=== PATIENT | male | born 1940 | race Caucasian/White ===

== ENCOUNTER 2018-02-01 12:52 | Outpatient (CLI) | payer MEDICARE ==
[~2018-02-01 12:52] MED LIST: ACET-812 PO; ASPRIN PO; CLON-285 PO; DULR RC; VITC500T PO; [UNRECOGNIZED DRUG - SUPPLY]; [UNRECOGNIZED DRUG - SUPPLY]
[2018-02-01 13:21] LABS: TOTAL HEMOGLOBIN 16.1 G/dl (14.0-18.0)
[2018-02-01] MEDS ORDERED: albuterol 2.5 MG/3 ML nebule NEB ONE (13:50)
== END 2018-02-01 23:59 | disposition home or self-care (01) ==
LOC: RT 12:52
PROVIDERS: ATTEND Internal Medicine Pulmonary Disease
DX: J44.9 Chronic obstructive pulmonary disease, unspecified (principal); Z87.891 Personal history of nicotine dependence
CPT/HCPCS: 85018; 94010; 94727

== ENCOUNTER 2018-03-15 12:45 | Outpatient (CLI) | payer MEDICARE ==
[~2018-03-15] VITALS: Ht 182.9 cm; Wt 79.4 kg
[2018-03-15 13:20] LABS: TOTAL HEMOGLOBIN 15.8 G/dl (14.0-18.0)
[2018-03-15] MEDS ORDERED: albuterol 2.5 MG/3 ML nebule NEB ONE (13:30)
== END 2018-03-15 23:59 | disposition home or self-care (01) ==
LOC: RT 12:45
PROVIDERS: ATTEND Internal Medicine Pulmonary Disease
DX: J44.9 Chronic obstructive pulmonary disease, unspecified (principal); Z87.891 Personal history of nicotine dependence
CPT/HCPCS: 85018; 94060; 94640; 94727; 94729; 94760

== ENCOUNTER 2019-07-23 10:55 | Day surgery (SDC) | payer MEDICARE ==
[~2019-07-23] VITALS: Ht 180.3 cm; Wt 80.8 kg
[2019-07-23] MEDS ORDERED: normal saline 1,000 ML IV SCH (11:20)
[2019-07-23] MEDS ORDERED: diphenhydrAMINE 25mg capsule PO PRN (11:20)
[2019-07-23] MEDS ORDERED: FLO0.4C PO (11:27)
[2019-07-23] MEDS ORDERED: BUDE10.2 INH (11:27)
[2019-07-23] MEDS ORDERED: FINA5TAB11 PO (11:27)
[2019-07-23] MEDS ORDERED: MULT-1085 PO (11:27)
[2019-07-23] MEDS ORDERED: ALBU8HFA PO (11:27)
[2019-07-23 11:45] VITALS: BP 147/67
[2019-07-23 11:50] LABS: BASOPHILS % (AUTO) 0.5 % (0-1); EOSINOPHILS # (AUTO) 0.1 X10'3 (0-0.9); EOSINOPHILS % (AUTO) 1.8 % (0-6); HEMATOCRIT 45.5 % (42.0-52.0); HEMOGLOBIN 15.4 g/dl (14.0-17.9); LYMPHOCYTES % (AUTO) 17.9 % (21-51); MEAN CORPUSCULAR HEMOGLOBIN 29.4 PG (27.0-31.0); MEAN CORPUSCULAR HGB CONC 33.9 g/dL (33.0-36.5); MEAN CORPUSCULAR VOLUME 86.7 FL (78-98); MEAN PLATELET VOLUME 7.2 FL (7.4-10.4); MONOCYTES # (AUTO) 0.6 X10'3 (0-0.9); MONOCYTES % (AUTO) 10.7 % (2-12); NEUTROPHILS # (AUTO) 3.9 X10'3 (1.8-7.7); NEUTROPHILS % (AUTO) 69.1 % (42-75); PLATELET COUNT 242 X10'3 (140-440); RED BLOOD COUNT 5.25 X10'6 (4.70-6.10); RED CELL DISTRIBUTION WIDTH 15.5 % (11.5-14.5); WHITE BLOOD COUNT 5.6 X10'3 (4.5-11.0)
[2019-07-23 11:59] LABS: ALBUMIN 3.9 G/DL (3.4-5.0); ANION GAP 7 (8-16); BLOOD UREA NITROGEN 17 MG/DL (7-18); BUN/CREATININE RATIO 15.9 (5.4-32.0); CALCIUM 9.3 MG/DL (8.5-10.1); CHLORIDE 103 MMOL/L (99-107); CREATININE 1.07 MG/DL (0.60-1.10); GLUCOSE 105 MG/DL (70-104); MAGNESIUM 2.2 MG/DL (1.5-2.4); POTASSIUM 4.4 MMOL/L (3.5-5.1); SODIUM 138 MMOL/L (135-145); TOTAL CARBON DIOXIDE 28.2 MMOL/L (24-32); eGFR 67 ML/MIN
[2019-07-23] MEDS ORDERED: iohexol 350 MG/ML 50ML vial IV ONE (12:15)
[2019-07-23] MEDS ORDERED: LIDOcaine 1% (10mg/ml)w/preservative injection 20ml MDV ONE (12:15)
[2019-07-23] MEDS ORDERED: heparin 1,000 UNITS/NS 500ml 500 ML ONE (12:15)
[2019-07-23] MEDS ORDERED: fentaNYL/PF 50MCG/1 ML 2ML syringe ONE (12:15)
[2019-07-23] MEDS ORDERED: iohexol 350MG/ML 100ml bottle IV ONE ×2 (12:15→13:55)
[2019-07-23] MEDS ORDERED: midazolam 2 mg/2 ml injection ONE (12:15)
--- NOTE | 2019-07-23 12:43 | NUR ---
Contacting MD to inform him pt wants to reschedule procedure. Pt states he does not have adequate coverage to help take care of "animals at my place". pt also states he lives in [place] and would feel more comfortable if he makes arrangements to have someone stay the night once he has the procedure done. Pt [place] in [place] "[place] area" of [place] and is concerned if he has any "bleeding issues" if the "ambulance would be able to find him". MD informed and Dr. Elizondo is coming to speak with patient at the bedside.
--- NOTE | 2019-07-23 12:50 | NUR ---
Pt discussed options with MD and has decided to reschedule on a later date.
[2019-07-23] MEDS ORDERED: heparin 1,000unit/ml 10ml vial 10 ML ONE (12:56)
[2019-07-23] MEDS ORDERED: verapamil 2.5 mg/ml inj IV ONE (12:56)
[2019-07-23] MEDS ORDERED: nitroGLYCERIN-Tridil 50MG/D5W 250 ML IV ONE (12:56)
== END 2019-07-23 13:25 | disposition home or self-care (01) ==
LOC: SSTAY O 10:55
PROVIDERS: ATTEND Internal Medicine Cardiovascular Disease
DX: R94.39 Abnormal result of other cardiovascular function study (principal); R07.2 Precordial pain; Z53.8 Procedure and treatment not carried out for other reasons; I25.118 Atherosclerotic heart disease of native coronary artery with other forms of angina pectoris; H54.40 Blindness, one eye, unspecified eye; J44.9 Chronic obstructive pulmonary disease, unspecified; E78.5 Hyperlipidemia, unspecified; N40.0 Benign prostatic hyperplasia without lower urinary tract symptoms; Z96.642 Presence of left artificial hip joint; Z98.890 Other specified postprocedural states; Z72.89 Other problems related to lifestyle; Z87.891 Personal history of nicotine dependence; Z88.1 Allergy status to other antibiotic agents; Z88.2 Allergy status to sulfonamides; Z79.899 Other long term (current) drug therapy
CPT/HCPCS: 36415; 80048; 83735; 85025; 85610; 93005; J1644; J2001; J2250; J3010; J7030; Q9967; J3490

== ENCOUNTER 2019-11-05 10:35 | Day surgery (SDC) | payer MEDICARE ==
[~2019-11-05] VITALS: Ht 180.3 cm; Wt 82.7 kg
[2019-11-05] VITALS (12 sets, daily range): BP systolic 110–146; BP diastolic 53–83
[~2019-11-05 10:35] MED LIST changes: -ACET-812 PO; +ALBU8HFA PO; -ASPRIN PO; +BUDE10.2 INH; -CLON-285 PO; -DULR RC; +FINA5TAB11 PO; +FLO0.4C PO; +MULT-1085 PO; -VITC500T PO; -[UNRECOGNIZED DRUG - SUPPLY]; -[UNRECOGNIZED DRUG - SUPPLY]
[2019-11-05] MEDS ORDERED: iohexol 350 MG/ML 50ML vial IV ONE (10:59)
[2019-11-05] MEDS ORDERED: heparin 1,000unit/ml 10ml vial 10 ML ONE (10:59)
[2019-11-05] MEDS ORDERED: iohexol 350MG/ML 100ml bottle IV ONE (10:59)
[2019-11-05] MEDS ORDERED: fentaNYL/PF 50MCG/1 ML 2ML syringe ONE (10:59)
[2019-11-05] MEDS ORDERED: LIDOcaine 1% (10mg/ml)w/preservative injection 20ml MDV ONE (10:59)
[2019-11-05] MEDS ORDERED: midazolam 2 mg/2 ml injection ONE ×2 (10:59→12:14)
[2019-11-05] MEDS ORDERED: normal saline 1,000 ML IV SCH (11:00)
[2019-11-05] MEDS ORDERED: diphenhydrAMINE 25mg capsule PO PRN (11:00)
[2019-11-05 11:56] LABS: ALBUMIN 3.8 G/DL (3.4-5.0); ANION GAP 5 (8-16); BLOOD UREA NITROGEN 16 MG/DL (7-18); CALCIUM 9.1 MG/DL (8.5-10.1); CHLORIDE 104 MMOL/L (99-107); CREATININE 0.89 MG/DL (0.60-1.10); GLUCOSE 95 MG/DL (70-104); MAGNESIUM 2.3 MG/DL (1.5-2.4); POTASSIUM 4.5 MMOL/L (3.5-5.1); SODIUM 138 MMOL/L (135-145); TOTAL CARBON DIOXIDE 28.9 MMOL/L (24-32); eGFR 82 ML/MIN
[2019-11-05] MEDS ORDERED: verapamil 2.5 mg/ml inj IV ONE (12:08)
[2019-11-05] MEDS ORDERED: nitroGLYCERIN-Tridil 50MG/D5W 250 ML IV ONE (12:08)
== END 2019-11-05 15:05 | disposition home or self-care (01) ==
LOC: SSTAY O 10:35
PROVIDERS: ATTEND Internal Medicine Cardiovascular Disease
DX: R94.30 Abnormal result of cardiovascular function study, unspecified (principal); R07.9 Chest pain, unspecified; I25.10 Atherosclerotic heart disease of native coronary artery without angina pectoris; E78.5 Hyperlipidemia, unspecified; J44.9 Chronic obstructive pulmonary disease, unspecified; Z98.890 Other specified postprocedural states; Z96.642 Presence of left artificial hip joint; Z72.89 Other problems related to lifestyle; Z87.891 Personal history of nicotine dependence; Z79.899 Other long term (current) drug therapy; Z88.2 Allergy status to sulfonamides; Z88.1 Allergy status to other antibiotic agents
CPT/HCPCS: 36415; 80048; 83735; 93454; 99152; C1769; C1894; J1644; J2001; J2250; J3010; J7030; Q0163; Q9967; 93005; A4620; A5120; A6258; J3490